=== PATIENT | male | born 1960 | race Two or more races ===

== ENCOUNTER → 2021-11-10 10:52 | Outpatient (BNVA) | payer MEDICAID, SELFPAY | PROVIDERS: PCP Internal Medicine; Referring Provider Internal Medicine; Visit Provider Physician Assistant | DX: Z13.89 Encounter for screening for other disorder (principal) ==

== ENCOUNTER 2021-12-08 11:49 | Outpatient (REF) | payer MEDICAID, SELFPAY ==
--- NOTE | ~2021-12-08 | CT_ITS ---
EXAMINATION: CT ABDOMEN AND PELVIS WITH CONTRAST CLINICAL INFORMATION: Colon COMPARISON: Previous CT of the abdomen and pelvis most recent December 2018 TECHNIQUE: Multidetector volumetric images were obtained from the superior aspect of the liver through the pubic symphysis following administration 85 mL of Omnipaque 350 intravenous contrast. Sagittal and coronal reformatted images were obtained on the technologist's workstation. Oral contrast: Yes This CT examination was performed using dose optimization techniques as appropriate, variously including the following: *Automated exposure control *Adjustment of mA and/or kV according to patient size (this includes techniques or standardized protocols for targeted exams where dose is matched to indication/reason for exam; i.e. extremities or head) *Use of iterative reconstruction technique DLP: 318 mGy-cm FINDINGS: LUNG BASES: The visualized lung bases are unremarkable. LIVER, GALLBLADDER, AND BILIARY TREE: There is heterogeneous enhancement of the liver. There are numerous high attenuation or enhancing peripheral areas in the liver, predominantly in the left lobe of the liver for example measuring 2.5 cm axial image 14, 3 cm axial image 15 and 1.1 cm axial image 16 series 3. It is uncertain whether these represent hypervascular lesions are more related to heterogeneous enhancement of the liver. The intrahepatic IVC and hepatic veins appear narrowed. 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 There is a definite new focal low-attenuation liver lesion high in the dome liver. This partially calcified This measures 3.5 x 4 cm. This is in attenuation and may be complex cystic. This appears slightly angular or triangular in shape. This is new from December 2018 exam however is seen in area of 1.2 cm hypervascular lesion and it is possible this could represent a treated lesion. This area abuts the gallbladder and it is possible this could be related to the gallbladder as well. The gallbladder appears contracted. There are gallstones. There is no intra or extrahepatic biliary duct dilatation. PANCREAS: Unremarkable. SPLEEN: There is low-attenuation seen along the periphery of the spleen. No focal splenic lesion is seen. ADRENAL GLANDS: Unremarkable. KIDNEYS AND URETERS: The kidneys are normal in size, shape, and attenuation. No hydronephrosis, hydroureter, or calculi seen. No perinephric stranding. BLADDER: Unremarkable. GASTROINTESTINAL TRACT: There is stool throughout the colon. No dilated loops of bowel to suggest obstruction are seen. Small and large bowel is otherwise unremarkable. The appendix is not seen. ABDOMINAL WALL: No significant hernia is appreciated. LYMPH NODES: Normal. No ascites. No evidence of peritoneal disease. VASCULAR: There is evidence of atherosclerotic disease. No aneurysm. PELVIC VISCERA: Unremarkable. OSSEOUS STRUCTURES: Degenerative disc disease at L5-S1. No focal bone lesion or fracture. CT/CT abdomen pelvis w con IMPRESSION: Mild cirrhotic changes of the liver. Areas of increased enhancement in the left lobe of the liver questionable for hypervascular lesions versus possibly vascular perfusion changes related to Budd-Chiari. New triangular-shaped low-attenuation area high in the dome of the liver. This is seen in the area of previous hypervascular lesion and this may represent posttreatment changes. Liver findings could be better assessed with MRI or PET CT scan. Contracted gallbladder and gallstones. New peripheral low-attenuation in the spleen questionable for capsular thickening or possibly subcapsular implants related to metastatic disease. Constipation. Fleischner guidelines were followed.
--- NOTE | ~2021-12-08 | CT_ITS ---
EXAMINATION: CT CHEST WITH CONTRAST CLINICAL INFORMATION: Cancer staging. COMPARISON: None. TECHNIQUE: Multidetector volumetric CT imaging of the chest was obtained after the administration of 85 mL of Omnipaque 350 intravenous contrast without immediate adverse reactions. Axial MIP volume rendering provided. Sagittal and coronal reformatted images were obtained. This CT examination was performed using dose optimization techniques as appropriate, variously including the following: *Automated exposure control *Adjustment of mA and/or kV according to patient size (this includes techniques or standardized protocols for targeted exams where dose is matched to indication/reason for exam; i.e. extremities or head) *Use of iterative reconstruction technique DLP: 135 mGy-cm. FINDINGS: TITLE CLERK: Well-expanded lungs. LUNGS: The lungs are well expanded and clear acute pneumonic process. There is a punctate 1 mm right upper lobe calcification image 29/4, 3 mm right middle lobe calcification axial image 33/4. No noncalcified nodules are seen. MEDIASTINUM: Heart size and the great vessels are normal caliber. There is no pericardial effusion. Central trachea and the bronchi are widely patent. No abnormal size mediastinal or hilar lymph nodes seen. The thyroid lobes are symmetrical and normal. PLEURA: There is no pleural effusion. No pleural mass or thickening. AXILLA: No lymphadenopathy. UPPER ABDOMEN: The liver is diffusely hypoattenuated areas of focal fatty sparing. There are areas of focal hypodensity in the hypoattenuated lesions measure approximately 400-500 HU and may represent calcifications. The IVC is compromised. The hepatic veins are not visualized. The portal vein is widely patent. OSSEOUS STRUCTURES: There is no lytic or sclerotic process. CT/CT chest w con IMPRESSION: Scattered calcified nodules likely granulomas. No noncalcified nodules seen. No abnormal mediastinal or axillary lymphadenopathy. Heterogeneous liver lesions with likely calcifications. Recommend MRI liver with and without contrast or CT-guided biopsy of hepatic lesions. Fleischner guidelines were followed.
[2021-12-08] MEDS: iohexoL 350 MG/ML 100 ML INFUS..BTL IV (14:45)
== END 2021-12-08 11:50 | disposition home or self-care (01) ==
LOC: HO.CT 11:49
PROVIDERS: Visit Provider Internal Medicine
DX: C22.0 Liver cell carcinoma (principal)
CPT/HCPCS: 71260; 74177; Q9967

== ENCOUNTER → 2022-01-02 10:33 | Outpatient (BNVA) | payer MEDICAID, SELFPAY | PROVIDERS: Visit Provider Internal Medicine Gastroenterology | DX: Z13.89 Encounter for screening for other disorder (principal) ==

== ENCOUNTER 2022-01-07 08:21 | Outpatient (REF) | payer MEDICAID, SELFPAY ==
[2022-01-07 09:22] LABS: MANUAL DIFF FLAG NO
[2022-01-07 10:10] LABS: Basophils Percent Auto 0.5 % (0-2); Eosinophils Absolute Auto 0.1 X10*3/uL (0.0-0.4); Eosinophils Percent Auto 1.4 % (0-4); Imm Gran Abs Auto 0.01 X10*3/uL (0.00-0.03); Imm Gran Pct Auto 0.2 % (0.0-0.4); Lymphocytes Absolute Auto 2.5 X10*3/uL (1.2-4.9); Lymphocytes Percent Auto 38.7 % (20-40); Mean Corpuscular HGB Conc 32.6 g/dl (31.0-36.0); Mean Corpuscular Hemoglobin 28.5 pg (27.0-33.0); Mean Corpuscular Volume 87.5 fL (80.0-98.0); Mean Platelet Volume 11.9 fL (9.4-12.4); Monocytes Absolute Auto 0.7 X10*3/uL (0.1-1.2); Monocytes Percent Auto 11.1 % (2-11); Neutrophils Absolute Auto 3.2 x10*3/uL (2.0-8.3); Neutrophils Percent Auto 48.1 % (45-73); Platelet Count 197 X10*3/uL (160-400); Red Blood Count 5.26 X10*6/uL (4.60-5.80); Red Cell Distribution Width 13.2 % (11.0-16.0); White Blood Count 6.6 X10*3/uL (4.8-10.8)
[2022-01-07 10:15] LABS: Prothrombin Time 11.8 SEC (9.9-13.0)
[2022-01-07 10:54] LABS: Hepatitis A Antibody IgG REACTIVE (Nonreactive); ~Hepatitis A Antibody IgG 4.28 S/CO (0.00-0.99)
[2022-01-07 10:56] LABS: HBS Num1 33.63 mIU/mL (0-7.99); HBc Num1 9.37 S/CO (0.00-0.79); HBsAGNum1 0.16 S/CO (0.00-0.99); Hepatitis B Surface Antigen Negative (Negative); ~HepC Num1 12.23 S/CO (0.00-0.79); ~Hepatitis B Surface Antibody REACTIVE (Nonreactive); ~Hepatitis C Antibody Reactive (Nonreactive)
[2022-01-07 10:59] LABS: Alanine Aminotransferase 107 U/L (0-40); Albumin Level 3.9 g/dL (3.5-5.0); Alkaline Phosphatase 219 U/L (39-117); Anion Gap 13 (12-20); Aspartate Amino Transferase 122 U/L (5-37); Bilirubin Total 0.7 mg/dL (0.0-1.0); Blood Urea Nitrogen 17 mg/dL (9-16); Calcium 9.7 mg/dL (8.4-10.2); Carbon Dioxide 26 mmol/L (22-29); Chloride 104 mmol/L (96-108); Estimated Glomerular Filt Rate > 60; Glucose Random 141 mg/dL (60-115); Potassium 4.5 mmol/L (3.3-5.1); Sodium 138 mmol/L (135-145); Total Protein 7.3 g/dL (6.5-8.0)
[2022-01-07 12:42] LABS: HBc Num2 9.29 S/CO; HBc Num3 9.23 S/CO; Hepatitis B Core Antibody Reactive (Nonreactive)
[2022-01-10 12:56] LABS: HCV RNA PCR Qn 6.91 Log IU/mL (NOT DETECTED)
[2022-01-13 18:46] LABS: FIB-ALT 84 U/L (9-46); FIB-Alpha-2-Macroglobulin 557 mg/dL (106-279); FIB-Apolipoprotein A1 160 mg/dL (94-176); FIB-GGT 531 U/L (3-70); FIB-Haptoglobin 44 mg/dL (43-212); FIB-Total Bilirubin 0.8 mg/dL (0.2-1.2); Liver Fibrosis Score 0.96; Liver Fibrosis Stage F4; Nec Inflam Act Grade A3; Nec Inflam Act Score 0.73
[2022-01-14 15:27] LABS: HCV Genotype LiPA 1b
== END 2022-01-07 08:22 | disposition home or self-care (01) ==
LOC: HO.LAB 08:21
PROVIDERS: PCP Internal Medicine; Visit Provider Internal Medicine Gastroenterology
DX: B19.20 Unspecified viral hepatitis C without hepatic coma (principal); C22.0 Liver cell carcinoma; K75.81 Nonalcoholic steatohepatitis (NASH)
CPT/HCPCS: 36415; 80053; 81596; 85025; 85610; 86704; 86706; 86708; 86803; 87340; 87522; 87902

== ENCOUNTER 2022-07-10 14:03 | Emergency (ER) | payer MEDICAID, SELFPAY ==
--- NOTE | ~2022-07-10 | CT_ITS ---
EXAMINATION: CT ABDOMEN AND PELVIS WITHOUT CONTRAST CLINICAL INFORMATION: Abdominal pain. History of liver cancer COMPARISON: CT abdomen and pelvis 12/08/2021 TECHNIQUE: Multidetector volumetric imaging was performed from the superior aspect of the liver through the pubic symphysis. Sagittal and coronal reformatted images were obtained on the technologist's workstation. This CT examination was performed using dose optimization techniques as appropriate, variously including the following: *Automated exposure control *Adjustment of mA and/or kV according to patient size (this includes techniques or standardized protocols for targeted exams where dose is matched to indication/reason for exam; i.e. extremities or head) *Use of iterative reconstruction technique DLP: 430 mGy-cm FINDINGS: LUNG BASES: The visualized lung bases are unremarkable. LIVER, GALLBLADDER, AND BILIARY TREE: Cirrhotic liver morphology with nodular surface contour redemonstrated. There is a wedge-shaped. Geographic hypoattenuation in the anterior upper right liver with coarse calcifications, grossly similar to prior. Assessment is limited due to lack of intravenous contrast. There are couple somewhat ill-defined areas of hypoattenuation in the lateral segment left liver lobe, largest 2.9 cm on series 3 image 18 a small subcentimeter hypodense focus in the posterior segment right liver lobe on series 3 image 22. Correlate on the comparison study. No biliary ductal dilation. Gallbladder is contains high-density material/sludge and stones. No surrounding inflammatory change. PANCREAS: Unremarkable. SPLEEN: Normal size. Somewhat lobulated capsular contour. No discrete lesion. ADRENAL GLANDS: Unremarkable. KIDNEYS AND URETERS: The kidneys are normal in size, shape, and attenuation. No hydronephrosis, hydroureter, or calculi seen. No perinephric stranding. BLADDER: Unremarkable. GASTROINTESTINAL TRACT: Mild sigmoid diverticulosis. No evidence of acute diverticulitis. No dilated bowel loops. No bowel wall thickening. Normal appendix. No ascites or free air. ABDOMINAL WALL: No significant hernia is appreciated. LYMPH NODES: No lymphadenopathy. There is hazy attenuation/pedro appearance of the mesentery, new since prior. VASCULAR: Limited assessment due to lack of intravenous contrast. Normal caliber abdominal aorta. Moderate atherosclerotic vascular calcifications. PELVIC VISCERA: Unremarkable. OSSEOUS STRUCTURES: There are small osteolytic lesions suspicious for metastasis including in the right ischium, supra-acetabular right iliac bone, left upper sacrum, L1, L2, L4, L5 vertebral bodies and possible involving the posterior left ninth rib the top margin of the [id number] as examples. No acute fracture. CT/CT abdomen pelvis wo IV con IMPRESSION: 1. No acute intra-abdominal process identified. 2. Cirrhosis with a few ill-defined hypodense lesions in the lateral segment left liver lobe and posterior segment right liver lobe, not well assessed due to lack of intravenous contrast, but appear new since prior possibly multifocal HCC or metastasis. 3. Multiple small osteolytic osseous lesions, as above, highly suspicious for osseous metastasis. 4. Hazy/pedro attenuation of the mesentery, new since prior, nonspecific in etiology. Cannot exclude portal vein thrombosis due to lack of intravenous contrast as possible etiology. 5. Cholelithiasis. 6. Additional finding, as described.
[2022-07-10 14:45] VITALS: BP 169/83; PULSE 88; RESP 18; TEMP 36.6; O2SAT 98; BMI 21.1
--- NOTE | 2022-07-10 14:45 | ED_ITS ---
HPI - General Adult General Chief complaint: Abdominal Pain Stated complaint: Stomach Pain X 2 Days Time Seen by Provider: 07/10/22 17:25 Source: patient Mode of arrival: ambulatory Limitations: no limitations Related Data Home Medications Medication Instructions Recorded Confirmed glipizide 10 mg tablet 10 mg PO BID 11/10/21 12/18/21 lisinopril 20 2 tab PO DAILY 11/10/21 12/18/21 mg-hydrochlorothiazide 25 mg tablet Previous Rx's Medication Instructions Recorded glecaprevir 100 mg-pibrentasvir 40 3 tab PO DAILY 16 weeks #336 tabs 01/21/22 mg tablet (Mavyret) entecavir 1 mg tablet 1 mg PO DAILY 30 days #30 tabs 01/23/22 Allergies Allergy/AdvReac Type Severity Reaction Status Date / Time No Known Allergies Allergy Verified 12/18/21 14:12 [facility] Past Medical History Medical History HCC (hepatocellular carcinoma) Surgical History History of colonoscopy Family History Family History Daughter Unknown family medical history Social History Social History (Updated 11/10/21 @ 11:43 by Vdiya Do PA-C) Household Members Other:: lives alone Alcohol intake: former Patient Tobacco Use Status: Former Tobacco user Advance Directives: No Advance Directives Information Provided: No Current occupational status: disabled Physical Exam ED Vital Signs: Vital Signs - 24 hr 07/10/22 14:45 07/10/22 18:49 Temperature 97.9 F Pulse Rate 88 93 Respiratory Rate 18 Blood Pressure 169/83 H 156/76 H Pulse Oximetry 98 100 Oxygen Delivery Method Room Air Room Air BMI result Body Mass Index 21.1 Course Course Course Narrative: RME performed by Dinah Youngblood PA-C. Patient is a 61 year old male with a history of hepatocellular carincoma presenting to the emergency department with abdominal pain. Patient states that the pain has been present over the last 2 days and he has not had a BM in that time. CBC, CMP, UA, and CT abd/pelvis ordered. Patient placed back in the waiting room pending results and bed availability. Patient seen and discharged by Dr. Del Castillo who created and completed a separate note. Medications Administered Discontinued Medications Generic Name Dose Route Start Last Admin Trade Name Freq PRN Reason Stop Dose Admin Hydromorphone HCl 1 mg 07/10/22 18:43 07/10/22 19:15 Hydromorphone Hcl 1 Mg/Ml Syringe IM 07/10/22 18:44 1 mg ONCE ONE Administration Protocol Medical Decision Making Lab Data Result diagrams: 07/10/22 16:42 07/10/22 16:42 Labs: Lab Results 07/10/22 07/10/22 07/10/22 Range/Units 14:57 16:42 16:42 WBC 16.6 H (4.8-10.8) X10*3/uL RBC 4.08 L D (4.60-5.80) X10*6/uL Hgb 11.8 L D (14.0-18.0) g/dl Hct 35.4 L D (42.0-52.0) % MCV 86.8 (80.0-98.0) fL MCH 28.9 (27.0-33.0) pg MCHC 33.3 (31.0-36.0) g/dl RDW 13.6 (11.0-16.0) % Plt Count 206 (160-400) X10*3/uL MPV 11.4 (9.4-12.4) fL Immature Gran % (Auto) 0.5 H (0.0-0.4) % Neut % (Auto) 79.9 H (45-73) % Lymph % (Auto) 7.9 L (20-40) % [place] % (Auto) 11.4 H (2-11) % Eos % (Auto) 0.1 (0-4) % Baso % (Auto) 0.2 (0-2) % Lymph # (Auto) 1.3 (1.2-4.9) X10*3/uL [place] # (Auto) 1.9 H (0.1-1.2) X10*3/uL Eos # (Auto) 0.0 (0.0-0.4) X10*3/uL Baso # (Auto) 0.0 (0.0-0.2) X10*3/uL Abs Immat Gran (auto) 0.08 H (0.00-0.03) X10*3/uL Absolute Neuts (auto) 13.3 H (2.0-8.3) x10*3/uL Absolute Nucleated RBC 0.000 (0.0-0.012) X10*3/uL Nucleated RBC % (auto) 0.0 (0.0-0.2) /100WBC Sodium 130 L (135-145) mmol/L Potassium 4.9 (3.3-5.1) mmol/L Chloride 96 (96-108) mmol/L Carbon Dioxide 27 (22-29) mmol/L Anion Gap 12 (12-20) BUN 22 H (9-16) mg/dL Creatinine 0.78 (0.5-1.4) mg/dL Estim Creat Clear Calc 83.9 Estimated GFR > 60 Random Glucose 166 H (60-115) mg/dL Calcium 9.1 D (8.4-10.2) mg/dL Magnesium 2.0 (1.6-2.6) mg/dL Total Bilirubin 1.4 H (0.0-1.0) mg/dL AST 588 H (5-37) U/L ALT 360 H (0-40) U/L Alkaline Phosphatase 317 H (39-117) U/L Total Protein 6.7 (6.5-8.0) g/dL Albumin 3.6 (3.5-5.0) g/dL Lipase 34 (8-78) U/L Influenza Type A (PCR) NEGATIVE (Negative) Influenza Type B (PCR) NEGATIVE (Negative) RSV RNA Qual (PCR) NEGATIVE (Negative) SARS-CoV-2 RNA (RT-PCR) NEGATIVE (Negative) Discharge Plan Discharge Clinical Impression: Cirrhosis, HCC (hepatocellular carcinoma) Patient Disposition: Home, Self-Care Prescriptions: No Action Mavyret 100-40 mg tablet 3 tab PO DAILY 112 Days Qty: 336 0RF Rx Instructions: must administer with a meal/food entecavir 1 mg tablet 1 mg PO DAILY 30 Days Qty: 30 6RF lisinopril-hydrochlorothiazide 20-25 mg tablet 2 tab PO DAILY glipizide 10 mg tablet 10 mg PO BID Referrals: Verónica Kingsley MD [Physician] - 07/13/22 Willem Chirinos MD [Physician] - 07/13/22
[2022-07-10 15:42] LABS: Influenza A PCR NEGATIVE (Negative); Influenza B PCR NEGATIVE (Negative); Resp Syncy Virus RNA Qual PCR NEGATIVE (Negative); SARS COV2 PCR INHOUSE NEGATIVE (Negative)
[2022-07-10 16:49] LABS: Basophils Percent Auto 0.2 % (0-2); Eosinophils Percent Auto 0.1 % (0-4); Hematocrit 35.4 % (42.0-52.0); Hemoglobin 11.8 g/dl (14.0-18.0); Imm Gran Abs Auto 0.08 X10*3/uL (0.00-0.03); Imm Gran Pct Auto 0.5 % (0.0-0.4); Lymphocytes Absolute Auto 1.3 X10*3/uL (1.2-4.9); Lymphocytes Percent Auto 7.9 % (20-40); MANUAL DIFF FLAG NO; Mean Corpuscular HGB Conc 33.3 g/dl (31.0-36.0); Mean Corpuscular Hemoglobin 28.9 pg (27.0-33.0); Mean Corpuscular Volume 86.8 fL (80.0-98.0); Mean Platelet Volume 11.4 fL (9.4-12.4); Monocytes Absolute Auto 1.9 X10*3/uL (0.1-1.2); Monocytes Percent Auto 11.4 % (2-11); Neutrophils Absolute Auto 13.3 x10*3/uL (2.0-8.3); Neutrophils Percent Auto 79.9 % (45-73); Platelet Count 206 X10*3/uL (160-400); Red Blood Count 4.08 X10*6/uL (4.60-5.80); Red Cell Distribution Width 13.6 % (11.0-16.0); SCAN SMEAR FLAG 1; White Blood Count 16.6 X10*3/uL (4.8-10.8)
[2022-07-10 17:11] LABS: Alanine Aminotransferase 360 U/L (0-40); Albumin Level 3.6 g/dL (3.5-5.0); Alkaline Phosphatase 317 U/L (39-117); Anion Gap 12 (12-20); Aspartate Amino Transferase 588 U/L (5-37); Bilirubin Total 1.4 mg/dL (0.0-1.0); Blood Urea Nitrogen 22 mg/dL (9-16); Calcium 9.1 mg/dL (8.4-10.2); Carbon Dioxide 27 mmol/L (22-29); Chloride 96 mmol/L (96-108); Creatinine Clr Calc Pharmacy 83.9; Estimated Glomerular Filt Rate > 60; Glucose Random 166 mg/dL (60-115); Potassium 4.9 mmol/L (3.3-5.1); Sodium 130 mmol/L (135-145); Total Protein 6.7 g/dL (6.5-8.0)
[2022-07-10 18:12] LABS: Lipase 34 U/L (8-78)
--- NOTE | 2022-07-10 18:38 | ED_ITS ---
HPI - Abdominal Pain General Chief Complaint: Abdominal Pain Stated Complaint: Stomach Pain X 2 Days Time Seen by Provider: 07/10/22 17:25 Source: patient Mode of arrival: ambulatory Limitations: no limitations History of Present Illness HPI narrative: Patient is a 61-year-old male with a history of hepatitis C history of hepatocellular cancer with Mets patient evaluated in the past for abdominal pain. Did not want chemo for hepatocellular cancer. Been lost to follow-up. Presented back to the emergency department for having epigastric pain. Patient claims this pain is fairly consistent it has been ongoing getting worse in the last 3 days. There is no vomiting. No diarrhea. Patient claims last bowel m ovement about 2 days ago. Normal consistency. Patient denies any chest pain or shortness of breath. No fever no chills. Denies drinking alcohol. He is from home Related Data Home Medications Medication Instructions Recorded Confirmed glipizide 10 mg tablet 10 mg PO BID 11/10/21 12/18/21 lisinopril 20 2 tab PO DAILY 11/10/21 12/18/21 mg-hydrochlorothiazide 25 mg tablet Previous Rx's Medication Instructions Recorded glecaprevir 100 mg-pibrentasvir 40 3 tab PO DAILY 16 weeks #336 tabs 01/21/22 mg tablet (Mavyret) entecavir 1 mg tablet 1 mg PO DAILY 30 days #30 tabs 01/23/22 Allergies Allergy/AdvReac Type Severity Reaction Status Date / Time No Known Allergies Allergy Verified 12/18/21 14:12 Review of Systems Review of Systems No fever no chills no nausea no vomiting positive abdominal pain no chest pain or shortness of breath. No constipation Yes all other systems are reviewed and are negative [facility] Past Medical History Attestation statement: The following information was validated with the patient. Medical History HCC (hepatocellular carcinoma) Surgical History History of colonoscopy Family History Family History Daughter Unknown family medical history Social History Social History (Updated 11/10/21 @ 11:43 by Vidya Do PA-C) Household Members Other:: lives alone Alcohol intake: former Patient Tobacco Use Status: Former Tobacco user Advance Directives: No Advance Directives Information Provided: No Current occupational status: disabled Physical Exam ED Vital Signs: Vital Signs - 24 hr 07/10/22 14:45 07/10/22 18:49 Temperature 97.9 F Pulse Rate 88 93 Respiratory Rate 18 Blood Pressure 169/83 H 156/76 H Pulse Oximetry 98 100 Oxygen Delivery Method Room Air Room Air BMI result Body Mass Index 21.1 Appearance: Alert. Oriented X3. No acute distress. Eyes: Pupils equal, round and reactive to light. ENT: Pharynx normal. Neck: Normal inspection. Neck supple. No lymph nodes noted. No crepitus CVS: Normal heart rate and rhythm. Pulses normal. Normal S1 and S2 Respiratory: No respiratory distress. Breath sounds normal. No Wheezing. No rales Abdomen: Soft and nontender. No rigidity. No distention. good BS x4 Skin: Skin warm and dry. Normal skin color. Normal skin turgor. Extremities: No lower extremity edema. Neurovascular intact to all extremities. No Lacerations. No Rash Neuro: Oriented X 3. No motor deficit. No sensory deficit. Moving all extermities. No slurred speech Medications Administered Discontinued Medications Generic Name Dose Route Start Last Admin Trade Name Freq PRN Reason Stop Dose Admin Hydromorphone HCl 1 mg 07/10/22 18:43 07/10/22 19:15 Hydromorphone Hcl 1 Mg/Ml Syringe IM 07/10/22 18:44 1 mg ONCE ONE Administration Protocol MDM - Abdominal Pain MDM Narrative Medical decision making narrative: Patient's LFTs are significantly elevated than previous. Most likely related to hepatocellular cancer. The finding was discussed with Dr. Chirinos from GI. Agree the findings are consistent with worsening cancer lost to follow-up. Will also contact Oncology. Agree there is nothing specifically to do given the elevated LFTs. There is no obstruction. No biliary dilatation. Patient's given pain medication in the emergency department. Will discharge patient home with close follow-up oncology and GI. Patient explained the need for close follow-up. States understanding that he has cancer and does not want to be treated. Patient's name given to Dr. Paulino on-call for Dr. Kingsley. Will attempt to have patient follow up again. Patient's case also discussed with Dr. Chirinos both services a happy to see patient. Re-emphasized the patient the need for follow- up. Patient states understanding. There is no overt obstruction is no overt abscess there is no acute finding at this time. Patient is to be discharged home. Differential Diagnosis Differential diagnosis: Likely abdominal pain Differential diagnosis narrative:: Liver cancer Medical Records Attestation: I reviewed the patient's medical records. Lab Data Attestation: I reviewed the patient's lab results. Result diagrams: 07/10/22 16:42 07/10/22 16:42 Labs: Lab Results 07/10/22 07/10/22 07/10/22 Range/Units 14:57 16:42 16:42 WBC 16.6 H (4.8-10.8) X10*3/uL RBC 4.08 L D (4.60-5.80) X10*6/uL Hgb 11.8 L D (14.0-18.0) g/dl Hct 35.4 L D (42.0-52.0) % MCV 86.8 (80.0-98.0) fL MCH 28.9 (27.0-33.0) pg MCHC 33.3 (31.0-36.0) g/dl RDW 13.6 (11.0-16.0) % Plt Count 206 (160-400) X10*3/uL MPV 11.4 (9.4-12.4) fL Immature Gran % (Auto) 0.5 H (0.0-0.4) % Neut % (Auto) 79.9 H (45-73) % Lymph % (Auto) 7.9 L (20-40) % [place] % (Auto) 11.4 H (2-11) % Eos % (Auto) 0.1 (0-4) % Baso % (Auto) 0.2 (0-2) % Lymph # (Auto) 1.3 (1.2-4.9) X10*3/uL [place] # (Auto) 1.9 H (0.1-1.2) X10*3/uL Eos # (Auto) 0.0 (0.0-0.4) X10*3/uL Baso # (Auto) 0.0 (0.0-0.2) X10*3/uL Abs Immat Gran (auto) 0.08 H (0.00-0.03) X10*3/uL Absolute Neuts (auto) 13.3 H (2.0-8.3) x10*3/uL Absolute Nucleated RBC 0.000 (0.0-0.012) X10*3/uL Nucleated RBC % (auto) 0.0 (0.0-0.2) /100WBC Sodium 130 L (135-145) mmol/L Potassium 4.9 (3.3-5.1) mmol/L Chloride 96 (96-108) mmol/L Carbon Dioxide 27 (22-29) mmol/L Anion Gap 12 (12-20) BUN 22 H (9-16) mg/dL Creatinine 0.78 (0.5-1.4) mg/dL Estim Creat Clear Calc 83.9 Estimated GFR > 60 Random Glucose 166 H (60-115) mg/dL Calcium 9.1 D (8.4-10.2) mg/dL Magnesium 2.0 (1.6-2.6) mg/dL Total Bilirubin 1.4 H (0.0-1.0) mg/dL AST 588 H (5-37) U/L ALT 360 H (0-40) U/L Alkaline Phosphatase 317 H (39-117) U/L Total Protein 6.7 (6.5-8.0) g/dL Albumin 3.6 (3.5-5.0) g/dL Lipase 34 (8-78) U/L Influenza Type A (PCR) NEGATIVE (Negative) Influenza Type B (PCR) NEGATIVE (Negative) RSV RNA Qual (PCR) NEGATIVE (Negative) SARS-CoV-2 RNA (RT-PCR) NEGATIVE (Negative) Discharge Plan Discharge Clinical Impression: Cirrhosis, HCC (hepatocellular carcinoma) Patient Disposition: Home, Self-Care Instructions: Liver Cancer (DC), Cirrhosis (ED) Prescriptions: No Action Mavyret 100-40 mg tablet 3 tab PO DAILY 112 Days Qty: 336 0RF Rx Instructions: must administer with a meal/food entecavir 1 mg tablet 1 mg PO DAILY 30 Days Qty: 30 6RF lisinopril-hydrochlorothiazide 20-25 mg tablet 2 tab PO DAILY glipizide 10 mg tablet 10 mg PO BID Referrals: Verónica Kingsley MD [Physician] - 07/13/22 Willem Chirinos MD [Physician] - 07/13/22
[2022-07-10 18:49] VITALS: BP 156/76; PULSE 93; O2SAT 100
[2022-07-10] MEDS: HYDROmorphone HCl 1 MG/ML SYRINGE IM (19:15)
== END 2022-07-10 19:38 | disposition home or self-care (01) ==
PROVIDERS: Physician Assistant; Physician Assistant Medical; Emergency Provider Emergency Medicine Emergency Medical Services; PCP Internal Medicine
DX: K74.60 Unspecified cirrhosis of liver (principal); R10.13 Epigastric pain; C22.0 Liver cell carcinoma; Z20.822 Contact with and (suspected) exposure to COVID-19; Z79.899 Other long term (current) drug therapy
CPT/HCPCS: 0241U; 74176; 80053; 83690; 83735; 85025; 99283; J1170

== ENCOUNTER 2022-08-31 11:43 | Outpatient (REF) | payer MEDICAID, SELFPAY ==
--- NOTE | ~2022-08-31 | CT_ITS ---
EXAMINATION: CT CHEST, ABDOMEN AND PELVIS WITH IV CONTRAST CLINICAL INFORMATION: HCC COMPARISON: CT abdomen and pelvis 07/10/2022. TECHNIQUE: 5 mm thin axial and reformatted 3 mm thin sagittal and coronal images of chest, abdomen and pelvis were obtained following IV 85 mL Omnipaque 350. This CT examination was performed using dose optimization technique as appropriate, variously including the following: Automated exposure control Adjustment of MA and/or KV according to patient size(this includes techniques or standardized protocols for targeted exams where dose is matched to indication/reason for exam; extremities or head. Use of iterative reconstruction techniques. DLP: 219 mGy-cm. FINDINGS: CHEST: Lungs: Lungs are well-expanded and clear of acute pneumonic process. There is a 2 mm nodule left upper lobe, axial image 141/7; calcified nodule right upper lobe, axial image 161/7; 4 mm nodule right middle lobe, axial image 33/4; punctate subcentimeter nodules in the right middle lobe and lingula. Mediastinum: The thyroid lobes are symmetric and normal. The central trachea and bronchi are widely patent. The heart size and the great vessels are normal caliber. There are no coronary artery calcifications present. There is no pericardial effusion seen. No abnormal size mediastinal or hilar lymph nodes. Pleura: There is no pleural thickening, effusion or calcification. Axilla: There is no abnormal axillary lymph nodes. The chest wall is unremarkable. Osseous Structures: No aggressive lytic or sclerotic process seen. ABDOMEN AND PELVIS: Liver, Ducts and Gallbladder: The liver is heterogeneous, lobulated contour with diffuse abnormal-appearing medial right and almost entire left hepatic lobe with mild atrophy of right hepatic lobe. There is some sparing of the lateral segment left hepatic lobe. A few scattered calcifications are seen in the right hepatic lobe. No intrahepatic ductal dilatation seen. Findings are most suggestive of HCC. The size of the lesion appears similar to previous study, however, limited due to lack of IV contrast on the previous exam. Multiple radiopaque gallstones and high-density sludge balls. Spleen: The spleen is slightly lobulated but normal size. There is perisplenic soft tissue density. Pancreas: The pancreas is homogeneous in echotexture and appears unremarkable. Adrenal Glands: Unremarkable. Lymphovascular Structures: The abdominal aorta is normal caliber. No abnormal size retroperitoneal lymph nodes seen. GI Tract: There is a large amount of stool in the colon without significant distention. The small-bowel loops are opacified with oral contrast and are normal caliber. No free air, free fluid or inflammatory process. Previously seen mesenteric haziness appears slightly improved from the previous study. Abdominal Wall: Unremarkable. Pelvis: The bladder is undistended and unremarkable. No free fluid seen. No abnormal pelvic or inguinal lymph nodes. The prostate gland is normal size. Osseous Structures: There are multiple lytic lesions seen involving L4, L3, L2 and L1 vertebra. CT/CT abdomen pelvis w IV con IMPRESSION: Stable bilateral small appearing nodules. No abnormal mediastinal adenopathy. Cirrhosis with space occupying lesion medial left and lateral right hepatic lobe, the size of the lesion appears somewhat stable but unchanged. Findings are suggestive of HCC and likely multifocal with coalescent lesions appearing as one big lesion. No abnormal mediastinal or retroperitoneal adenopathy seen. Multiple osteolytic lesions involving the spine are stable as well. Mesenteric haziness is improved. Cholelithiasis and high-density sludge balls are stable. Severe constipation.
[2022-08-31] MEDS: Barium Sulfate Oral (Mocha) 450 ML ORAL.SUSP 900 ML PO (14:35)
[2022-08-31] MEDS: iohexoL 350 MG/ML 100 ML INFUS..BTL IV (14:37)
== END 2022-08-31 11:44 | disposition home or self-care (01) ==
LOC: HO.CT 11:43
PROVIDERS: PCP Internal Medicine; Visit Provider Internal Medicine
DX: C22.0 Liver cell carcinoma (principal)
CPT/HCPCS: 71260; 74177; Q9967

== ENCOUNTER 2022-09-08 10:41 | Outpatient (REF) | payer MEDICAID, SELFPAY ==
--- NOTE | ~2022-09-08 | PE_ITS ---
EXAMINATION: Fluorine-18 FDG PET/CT Scan CLINICAL INDICATION: Initial treatment management. Hepatocellular carcinoma, initial staging. PROCEDURE: 61 minutes following the intravenous administration of 18.2 mCi of fluorine 18 FDG, images from the base of the skull to the mid thighs were obtained using a combined PET/CT scanner with CT scan based attenuation correction. No oral contrast was administered. No intravenous contrast was administered. Transverse, coronal, sagittal, and volume reconstruction projections were obtained. The patient's blood glucose as determined by a finger stick, was 69 mg/dl immediately prior to injection. Total CT exam dose-length product 217.06 mGy-cm * These CT images were obtained using dose optimization techniques as appropriate, variously including the following: Automated exposure control * Adjustment of mA and/or kV according to patient size (this includes techniques or standardized protocols for targeted exams where dose is matched to indication/reason for exam; i.e. extremities or head) * Use of iterative reconstruction technique COMPARISON: No previous PET/CT scan is available for comparison. CT scan of the chest, abdomen, and pelvis dated 08/31/2022 is available for comparison.. FINDINGS: (Slice numbers described in this report are numbered superiorly to inferiorly with slice #1 in the head) NECK AND VISUALIZED HEAD: No foci of abnormal FDG activity are noted. The distribution of FDG activity is physiological. There is no cervical lymphadenopathy. THORAX: There are no foci of abnormal FDG activity in the chest. Several small subcentimeter nodules visualized on the diagnostic 08/31/2022 CT scan of the chest are again visualized: A 0.2 cm left upper lobe nodule, slice 200/698; a right upper lobe 0.2 cm nodule, slice 212/698; and a 0.5 cm densely calcified right middle lobe nodule, slice 263/698. These are all too small to be characterized on the FDG PET images, but appear unchanged from 08/31/2022. No additional pulmonary nodules are visualized. There is no pleural or pericardial fluid, or pneumothorax. There is no mediastinal, supraclavicular, or axillary lymphadenopathy. ABDOMEN AND PELVIS: A large mildly FDG avid mass replaces most of the volume of the left lobe of the liver, showing SUVmax 3.7, slice 132/267. No additional suspicious foci of increased FDG activity are present in the liver. There is a hypodense focus in the dome of the right lobe (liver Couinaud segment 8) which was better delineated on the IV contrast enhanced 08/31/[address] scan, and this appears to be FDG photopenic. It contains several dense calcifications and does not appear significantly changed from the 08/31/2022 study. No additional abnormalities are present in the liver. Multiple densely calcified gallbladder calculi are present, but the gallbladder is otherwise unremarkable. There is no abnormal FDG activity in the gallbladder. The spleen is unremarkable. The kidneys, adrenal glands and pancreas are unremarkable. There is mild FDG activity present throughout the gastrointestinal tract without a suspicious focal component. There is diverticulosis without evidence of diverticulitis. The hollow viscera are otherwise unremarkable. The pelvic organs are unremarkable. There is no retroperitoneal, mesenteric, pelvic or inguinal lymphadenopathy. MUSCULOSKELETAL: Multiple FDG avid lytic osseous lesions are present. These include a lytic lesion in the right supra-acetabular anterior iliac bone showing SUVmax 2.7, slice 208/267 corresponding to a lytic lesion measuring 1.3 x 0.6 cm in largest transverse dimensions, an ill-defined lytic lesion in the region of the right ischial tuberosity showing SUVmax 2.9, slice 238/267, and a lytic 1.5 x 1.0 cm lesion in the T10 vertebral body that shows SUVmax 3.0, slice 121/267. FDG avid lesions are present at several sites in the lumbar spine, most prominently in L1 and L4z. There is a lytic lesion, probably containing a pathological fracture in the posterior medial aspect of the left ninth rib showing SUVmax 2.5, slice 109/267 and an additional focus of increased FDG activity is present in the lateral aspect of the left seventh rib. VASCULAR: Diffuse vascular calcifications including coronary are noted. PET/PET CT fusion skull to thigh IMPRESSION: 1. An FDG avid mass replacing most of the volume of the left lobe of the liver is consistent with known primary hepatocellular carcinoma. 2. Multiple FDG avid lytic bone metastases are present as described above. 3. Subcentimeter pulmonary nodules are present, unchanged from the 08/31/2022 CT scan and too small to be characterized on the FDG PET images. Continued monitoring with diagnostic CT imaging is recommended. 4. No additional abnormalities suspicious for other metastatic or malignant lesions are noted. 5. Cholelithiasis. 6. Vascular calcifications including coronary.
== END 2022-09-08 10:42 | disposition home or self-care (01) ==
LOC: HO.PET 10:41
PROVIDERS: Visit Provider Internal Medicine
DX: Z13.89 Encounter for screening for other disorder (principal)

== ENCOUNTER 2022-10-22 10:53 | Outpatient (REF) | payer MEDICAID, SELFPAY ==
[2022-10-22 11:14] LABS: MANUAL DIFF FLAG NO
[2022-10-22 12:14] LABS: Basophils Percent Auto 0.6 % (0-2); Eosinophils Percent Auto 0.8 % (0-4); Hematocrit 38.6 % (42.0-52.0); Hemoglobin 12.6 g/dl (14.0-18.0); Imm Gran Abs Auto 0.02 X10*3/uL (0.00-0.03); Imm Gran Pct Auto 0.4 % (0.0-0.4); Lymphocytes Absolute Auto 1.1 X10*3/uL (1.2-4.9); Lymphocytes Percent Auto 21.5 % (20-40); Mean Corpuscular HGB Conc 32.6 g/dl (31.0-36.0); Mean Corpuscular Hemoglobin 26.1 pg (27.0-33.0); Mean Corpuscular Volume 79.9 fL (80.0-98.0); Monocytes Absolute Auto 0.5 X10*3/uL (0.1-1.2); Monocytes Percent Auto 9.3 % (2-11); Neutrophils Absolute Auto 3.4 x10*3/uL (2.0-8.3); Neutrophils Percent Auto 67.4 % (45-73); Platelet Count 251 X10*3/uL (160-400); Red Blood Count 4.83 X10*6/uL (4.60-5.80); Red Cell Distribution Width 16.5 % (11.0-16.0)
[2022-10-22 12:36] LABS: Appearance Urine Clear; Color Urine Dark Yellow; Glucose Urine UA Negative (Negative); Leukocyte Esterase Urine Negative (Negative); Nitrite Urine Negative (Negative); Urine Blood Negative (Negative); Urine Ketones Trace mg/dL (Negative); Urine Protein Negative (Neg-Trace)
[2022-10-22 12:52] LABS: Alanine Aminotransferase 176 U/L (0-40); Albumin Level 3.2 g/dL (3.5-5.0); Alkaline Phosphatase 447 U/L (39-117); Anion Gap 12 (12-20); Aspartate Amino Transferase 231 U/L (5-37); Bilirubin Total 0.9 mg/dL (0.0-1.0); Blood Urea Nitrogen 11 mg/dL (9-16); Calcium 8.4 mg/dL (8.4-10.2); Carbon Dioxide 23 mmol/L (22-29); Chloride 101 mmol/L (96-108); Estimated Glomerular Filt Rate > 60; Glucose Random 233 mg/dL (60-115); Potassium 4.2 mmol/L (3.3-5.1); Sodium 132 mmol/L (135-145); Total Protein 6.3 g/dL (6.5-8.0)
== END 2022-10-22 10:54 | disposition home or self-care (01) ==
LOC: HO.LAB 10:53
PROVIDERS: PCP Internal Medicine; Visit Provider Internal Medicine
DX: C79.51 Secondary malignant neoplasm of bone (principal); C22.0 Liver cell carcinoma
CPT/HCPCS: 36415; 80053; 81003; 85025

== ENCOUNTER 2022-10-29 06:50 | Day surgery (SDC) | payer MEDICAID, SELFPAY ==
--- NOTE | 2022-10-28 09:31 | P.CONAN_ITS ---
Documented by User: Ting Basurto NP 10/28/22 09:35 HPI - Anesthesia Eval Consult details Narrative: 61yo M for Upper Endoscopy History of liver cirrhosis, alcohol abuse, treated hepatitis-C genotype 1b, status post RF ablation of 1.5 cm right hepatic lobe biopsy-proven hepatoma. Recent imaging shows bone mets PMFSH Active Problems Active Problems: All Active Problems (Updated 10/23/22 @ 15:00 by Richa Monae RN) Cirrhosis (Acute) Poor historian (Acute) HCV (hepatitis C virus) (Acute) Bone metastases (Acute) HCC (hepatocellular carcinoma) (Chronic) Past Medical History Medical History (Updated 10/23/22 @ 15:00 by Richa Monae RN) Cataract Cirrhosis of liver Diabetes HCC (hepatocellular carcinoma) Hepatitis C [place] (hard of hearing) Family History Family History Daughter Unknown family medical history Surgical History Surgical History (Updated 10/23/22 @ 11:07 by Verónica Kingsley MD) History of colonoscopy History of liver biopsy Social History Social History Household Members: None Household Members Other:: lives alone Housing: Apartment Alcohol intake: former Patient Tobacco Use Status: Former Tobacco user Use of substances other than those prescribed or required for medical reasons: No Are you DNR?: No Advance Directives: No Advance Directives Information Provided: Yes Recently lost weight without trying: Yes How much weight loss: 34pounds or more Poor oral hygiene: No Current occupational status: disabled Meds Allergies Allergy/AdvReac Type Severity Reaction Status Date / Time acetaminophen AdvReac Unknown Unknown Verified 10/23/22 12:41 Home Medications Medication Instructions Recorded Confirmed Last Taken Type glipizide 10 mg tablet 10 mg PO BID 11/10/21 09/15/22 Unknown History lisinopril 20 2 tab PO DAILY 11/10/21 09/15/22 Unknown History mg-hydrochlorothiazide 25 mg tablet Exam Exam Date and Time: October 28, 2022930 Pertinent Lab Results Pertinent Lab Results: Laboratory Tests 08/25/22 10/22/22 10/22/22 15:03 11:13 11:13 WBC 5.0 Hgb 12.6 L Hct 38.6 L Plt Count 251 D PT 11.6 INR 1.0 Sodium 132 L Potassium 4.2 Chloride 101 Carbon Dioxide 23 BUN 11 Creatinine 0.73 Calcium 8.4 D Total Bilirubin 0.9 AST 231 H ALT 176 H Alkaline Phosphatase 447 H Total Protein 6.3 L Albumin 3.2 L Narrative Narrative: PET CT fusion skull to thigh 08/2022 IMPRESSION: 1.? An FDG avid mass replacing most of the volume of the left lobe of the liver is consistent with known primary hepatocellular carcinoma. 2.? Multiple FDG avid lytic bone metastases are present as described above. 3.? Subcentimeter pulmonary nodules are present, unchanged from the 08/31/2022 CT scan and too small to be characterized on the FDG PET images. Continued monitoring with diagnostic CT imaging is recommended. 4.? No additional abnormalities suspicious for other metastatic or malignant lesions are noted. 5.? Cholelithiasis. 6.? Vascular calcifications including coronary. Assessment and Plan Assessment Anesthesia Assessment: Chart Reviewed Documented by User: Simón Baenrjee MD 10/29/22 07:30 [facility] Past Medical History Medical History (Updated 10/23/22 @ 15:00 by Richa Monae, ZA) Cataract Cirrhosis of liver Diabetes HCC (hepatocellular carcinoma) Hepatitis C [place] (hard of hearing) Family History Family History Daughter Unknown family medical history Family history of problems with anesthesia: No Surgical History Surgical History (Updated 10/23/22 @ 11:07 by Verónica Kingsley MD) History of colonoscopy History of liver biopsy History of Problems with Anesthesia: No Social History Social History Household Members: None Household Members Other:: lives alone Housing: Apartment Alcohol intake: former Patient Tobacco Use Status: Former Tobacco user Use of substances other than those prescribed or required for medical reasons: No Are you DNR?: No Advance Directives: No Advance Directives Information Provided: Yes Recently lost weight without trying: Yes How much weight loss: 34pounds or more Poor oral hygiene: No Current occupational status: disabled Meds Allergies Allergy/AdvReac Type Severity Reaction Status Date / Time acetaminophen AdvReac Unknown Unknown Verified 10/23/22 12:41 Home Medications Medication Instructions Recorded Confirmed Last Taken Type glipizide 10 mg tablet 10 mg PO BID 11/10/21 09/15/22 Unknown History lisinopril 20 2 tab PO DAILY 11/10/21 09/15/22 Unknown History mg-hydrochlorothiazide 25 mg tablet Exam Airway Mallampati Class: I TM Dist: >3cm Neck ROM: Full Denture: Lower Loose/Missing/Broken Teeth: Yes and Upper Heart: ok Lungs: ok Assessment and Plan Assessment Anesthesia Assessment: Anesthesia Plan Discussed Final Anesthetic Review Family History of Problems with Anesthesia: No History of Problems with Anesthesia: No NPO: Yes ASA Class: IV Final Preanesthetic Review: No Changes in Pt Med Stat, Meds/Allgs Chart Reviewed, Consent Obtained/Reviewed and Anes Risks/Benef Reviewed Patient Risk: High Procedure Risk: Intermediate Anesthetic Plan Anesthetic Plan: MAC: and Agree w/ Assess. and Plan Disposition: Standard PACU
[2022-10-29 06:53] VITALS: BP 142/69; PULSE 67; RESP 16; TEMP 35.8; O2SAT 100; BMI 19.7
[2022-10-29] MEDS: Lactated Ringers 1,000 ML 100 ML IVCONT (07:09)
[2022-10-29 07:38] LABS: Glucose, Whole Blood 63 mg/dL (60-115)
--- NOTE | 2022-10-29 07:44 | MHC.SHP ---
Pre-Procedural Eval Section A Date of Service: 10/29/22 Section B Chief Complaint: Liver cell carcinoma,Esophageal varices without bl Relevant Family History (Specify if Yes): No Relevant Social History: None Present Medications: see Short Stay Collaborative assessment Medical History: Significant History (Cataract Cirrhosis of liver Diabetes HCC (hepatocellular carcinoma) Hepatitis C [place] (hard of hearing)) History of Previous Operations: Relevant previous surgery/procedure and date(s) (liver biopsy) Allergies: Allergies Allergy/AdvReac Type Severity Reaction Status Date / Time acetaminophen AdvReac Unknown Unknown Verified 10/23/22 12:41 Review of Systems Sugical H&P ROS: Negative: Constitution, Cardiovascular, Respiratory, Neurological, Psychiatric, Hem-Onc, Allergic/Immunologic, Gastrointestinal, Genitourinary, Musculoskeletal, Integumentary, Endocrine and Eyes/Ears/Nose/Throat Exam Surgical H&P Exam: Normal: HEENT, Normal: Heart, Normal: Lungs, Normal: Extremities, Normal: Abdomen, Normal: Skin and Normal: Neurological Plan Diagnosis/Plan: Unchanged I have reviewed the history and physical and performed a pertinent physical examination on my patient. No changes have occurred unless specified. EGD for assessment of varices and bleeding risk prior to avastin Time Spent With Patient Time: Total time managing care of this patient today ____ minutes.
--- NOTE | 2022-10-29 07:45 | W.PM.OPN ---
Operative Note Operative Note Date of Service: 10/29/22 Narrative: Procedure Description: EGD Indication: Hx of cirrhosis and HCC with plan for avastin Anesthesia: MAC FLEXIBLE TRANSORAL UPPER GASTROINTESTINAL ENDOSCOPY UPPER ENDOSCOPY Consent: Indications for the procedure and potential complications of bleeding, perforation, reaction to medications and missed diagnosis were discussed with the patient and informed consent was obtained. Instrument: Olympus GIF H 190 J mid size upper endoscope Monitoring: Vital signs and clinical assessment, continuous EKG monitoring, Pulse oximetry, Carbon Dioxide monitoring and blood pressure monitoring were done throughout the procedure. Procedure: The patient was placed in the left lateral decubitis position and pre-procedure medications were administered and a bite block was placed. The endoscope was inserted into the mouth and advanced under direct vision to the third part of duodenum. A careful inspection was made as the upper endoscope was withdrawn including a retroflexed examination of the proximal stomach; Findings and interventions are described below. Findings: Larynx:normal Esophagus: GE junction at 40 cm, diaphragm hiatus at 40 cm, x3 cords of grade I esophageal varices which collapsed with air insufflation. No high features noted Stomach: Patchy gastric erythema with shallow ulcerations (Kevin grade III) at the antrum. Biopsies were obtained. Grade 3 flap valve on retroflexed examination of the cardia. Duodenum: Erosive bulbar duodenitis Intervention: Biopsies as noted above Impression/Findings: erosive duodenitis ulcerative gastritis small esophageal varices PLAN: commence PPI and carafate with low dose beta lakisha He is at low risk of bleeding from avastin if he is on above therapies repeat EGD as needed
[2022-10-29 08:05] VITALS: BP 115/60; PULSE 69; RESP 14; TEMP 36.3; O2SAT 96
[2022-10-29 08:20] VITALS: BP 119/71; PULSE 76; RESP 16; O2SAT 99
[2022-10-29 08:30] VITALS: BP 116/74; PULSE 76; RESP 18; TEMP 36.4; O2SAT 100
== END 2022-10-29 09:03 | disposition home or self-care (01) ==
PROVIDERS: PCP Internal Medicine; Visit Provider Internal Medicine Gastroenterology
PROC: 0DJ08ZZ Inspection of Upper Intestinal Tract, Via Natural or Artificial Opening Endoscopic (ICD-10-PCS; CPT 43235; principal; 2022-10-29 07:30)
DX: C22.0 Liver cell carcinoma (principal); C79.51 Secondary malignant neoplasm of bone; I85.00 Esophageal varices without bleeding; B19.20 Unspecified viral hepatitis C without hepatic coma; K74.60 Unspecified cirrhosis of liver; K25.4 Chronic or unspecified gastric ulcer with hemorrhage; K29.80 Duodenitis without bleeding; K44.9 Diaphragmatic hernia without obstruction or gangrene; E11.9 Type 2 diabetes mellitus without complications; H91.90 Unspecified hearing loss, unspecified ear; Z79.84 Long term (current) use of oral hypoglycemic drugs; Z79.899 Other long term (current) drug therapy; Z88.8 Allergy status to other drugs, medicaments and biological substances; Z87.891 Personal history of nicotine dependence
CPT/HCPCS: 43239; 82947; 88305; 88342; J3010

== ENCOUNTER 2022-10-30 15:52 | Outpatient (REF) | payer MEDICAID, SELFPAY ==
--- NOTE | ~2022-10-30 | XR_ITS ---
EXAMINATION: XR LUMBAR SPINE XR SACROILIAC JOINTS CLINICAL INFORMATION: Hepatocellular carcinoma. Osseous metastases. Pain. COMPARISON: PET/CT 09/08/2022, CT abdomen and pelvis 08/31/2022. TECHNIQUE: Lumbar spine is imaged in 3 views. The sacroiliac joints are imaged in 3 views. There are a total of 6 views. FINDINGS: Lumbar spine: There are 5 nonrib-bearing lumbar vertebrae with gentle dextrocurvature and normal lumbar lordosis. There is no interval lumbar vertebral compression or interval destructive process. Subtle lytic lesions are better seen on prior imaging. No spondylolisthesis. There are again degenerative disc changes lumbosacral junction with disc narrowing and endplate sclerosis and vertebral spurring. Bowel gas unremarkable. Moderate stool right colon. There are some calcifications overlying the liver similar to prior imaging. Sacroiliac joints: No fracture or interval destructive process. No subchondral sclerosis SI joints or erosive change. Subtle osseous lytic lesion is better appreciated on prior imaging. XR/XR sacroiliac joint 1-2V IMPRESSION: -Known osseous lesions better appreciated on prior cross-sectional imaging. -No interval destructive process or fracture. -Degenerative disc changes lumbosacral junction. -SI joints unremarkable.
--- NOTE | ~2022-10-30 | XR_ITS ---
EXAMINATION: XR LUMBAR SPINE XR SACROILIAC JOINTS CLINICAL INFORMATION: Hepatocellular carcinoma. Osseous metastases. Pain. COMPARISON: PET/CT 09/08/2022, CT abdomen and pelvis 08/31/2022. TECHNIQUE: Lumbar spine is imaged in 3 views. The sacroiliac joints are imaged in 3 views. There are a total of 6 views. FINDINGS: Lumbar spine: There are 5 nonrib-bearing lumbar vertebrae with gentle dextrocurvature and normal lumbar lordosis. There is no interval lumbar vertebral compression or interval destructive process. Subtle lytic lesions are better seen on prior imaging. No spondylolisthesis. There are again degenerative disc changes lumbosacral junction with disc narrowing and endplate sclerosis and vertebral spurring. Bowel gas unremarkable. Moderate stool right colon. There are some calcifications overlying the liver similar to prior imaging. Sacroiliac joints: No fracture or interval destructive process. No subchondral sclerosis SI joints or erosive change. Subtle osseous lytic lesion is better appreciated on prior imaging. XR/XR lumbar spine 2-3V IMPRESSION: -Known osseous lesions better appreciated on prior cross-sectional imaging. -No interval destructive process or fracture. -Degenerative disc changes lumbosacral junction. -SI joints unremarkable.
== END 2022-10-30 15:53 | disposition home or self-care (01) ==
LOC: HO.XRAY 15:52
PROVIDERS: PCP Internal Medicine; Visit Provider Internal Medicine
DX: C79.51 Secondary malignant neoplasm of bone (principal)
CPT/HCPCS: 72100; 72200

== ENCOUNTER 2022-11-12 06:37 | Outpatient (REF) | payer MEDICAID, SELFPAY ==
[2022-11-12 06:47] LABS: MANUAL DIFF FLAG NO
[2022-11-12 07:55] LABS: Basophils Percent Auto 0.5 % (0-2); Eosinophils Percent Auto 0.6 % (0-4); Hematocrit 38.5 % (42.0-52.0); Hemoglobin 12.4 g/dl (14.0-18.0); Imm Gran Abs Auto 0.02 X10*3/uL (0.00-0.03); Imm Gran Pct Auto 0.3 % (0.0-0.4); Lymphocytes Absolute Auto 1.5 X10*3/uL (1.2-4.9); Lymphocytes Percent Auto 23.4 % (20-40); Mean Corpuscular HGB Conc 32.2 g/dl (31.0-36.0); Mean Corpuscular Hemoglobin 25.9 pg (27.0-33.0); Mean Corpuscular Volume 80.5 fL (80.0-98.0); Mean Platelet Volume 11.2 fL (9.4-12.4); Monocytes Absolute Auto 0.7 X10*3/uL (0.1-1.2); Monocytes Percent Auto 11.6 % (2-11); Neutrophils Percent Auto 63.6 % (45-73); Platelet Count 161 X10*3/uL (160-400); Red Blood Count 4.78 X10*6/uL (4.60-5.80); Red Cell Distribution Width 17.4 % (11.0-16.0); White Blood Count 6.2 X10*3/uL (4.8-10.8)
[2022-11-12 08:09] LABS: Alanine Aminotransferase 306 U/L (0-40); Albumin Level 3.2 g/dL (3.5-5.0); Alkaline Phosphatase 457 U/L (39-117); Anion Gap 14 (12-20); Aspartate Amino Transferase 430 U/L (5-37); Bilirubin Total 1.3 mg/dL (0.0-1.0); Blood Urea Nitrogen 12 mg/dL (9-16); Calcium 8.8 mg/dL (8.4-10.2); Carbon Dioxide 26 mmol/L (22-29); Chloride 103 mmol/L (96-108); Estimated Glomerular Filt Rate > 60; Glucose Random 121 mg/dL (60-115); Potassium 3.9 mmol/L (3.3-5.1); Sodium 139 mmol/L (135-145); Total Protein 6.3 g/dL (6.5-8.0)
[2022-11-12 08:32] LABS: Appearance Urine Clear; Color Urine Dark Yellow; Glucose Urine UA Negative (Negative); Leukocyte Esterase Urine Negative (Negative); Nitrite Urine Negative (Negative); Urine Blood Negative (Negative); Urine Ketones Negative (Negative); Urine Protein Negative (Neg-Trace)
[2022-11-16 13:48] LABS: Alpha Fetoprotein 865.8 ng/mL (<6.1)
== END 2022-11-12 06:38 | disposition home or self-care (01) ==
LOC: HO.LAB 06:37
PROVIDERS: PCP Internal Medicine; Visit Provider Internal Medicine
DX: C22.0 Liver cell carcinoma (principal); C79.51 Secondary malignant neoplasm of bone
CPT/HCPCS: 36415; 80053; 81003; 82105; 85025

== ENCOUNTER 2022-11-19 10:59 | Outpatient (REF) | payer MEDICAID, SELFPAY ==
[2022-11-19 12:07] LABS: Basophils Percent Auto 0.2 % (0-2); Eosinophils Percent Auto 0.2 % (0-4); Hematocrit 38.1 % (42.0-52.0); Hemoglobin 12.4 g/dl (14.0-18.0); Imm Gran Abs Auto 0.05 X10*3/uL (0.00-0.03); Imm Gran Pct Auto 0.4 % (0.0-0.4); Lymphocytes Absolute Auto 0.6 X10*3/uL (1.2-4.9); Lymphocytes Percent Auto 4.9 % (20-40); MANUAL DIFF FLAG SCAN; Mean Corpuscular HGB Conc 32.5 g/dl (31.0-36.0); Mean Corpuscular Hemoglobin 26.3 pg (27.0-33.0); Mean Corpuscular Volume 80.9 fL (80.0-98.0); Mean Platelet Volume 10.6 fL (9.4-12.4); Monocytes Absolute Auto 1.8 X10*3/uL (0.1-1.2); Monocytes Percent Auto 15.1 % (2-11); Neutrophils Absolute Auto 9.5 x10*3/uL (2.0-8.3); Neutrophils Percent Auto 79.2 % (45-73); Platelet Count 212 X10*3/uL (160-400); Red Blood Count 4.71 X10*6/uL (4.60-5.80); Red Cell Distribution Width 18.6 % (11.0-16.0); SCAN SMEAR FLAG 1
[2022-11-19 12:28] LABS: Alanine Aminotransferase 1732 U/L (0-40); Albumin Level 3.1 g/dL (3.5-5.0); Alkaline Phosphatase 620 U/L (39-117); Anion Gap 12 (12-20); Aspartate Amino Transferase 2336 U/L (5-37); Bilirubin Total 2.7 mg/dL (0.0-1.0); Blood Urea Nitrogen 15 mg/dL (9-16); Calcium 8.3 mg/dL (8.4-10.2); Carbon Dioxide 27 mmol/L (22-29); Chloride 98 mmol/L (96-108); Estimated Glomerular Filt Rate > 60; Glucose Random 98 mg/dL (60-115); Potassium 4.6 mmol/L (3.3-5.1); Sodium 132 mmol/L (135-145); Total Protein 6.2 g/dL (6.5-8.0)
[2022-11-19 12:30] LABS: SLIDE REVIEW VERIFIED
== END 2022-11-19 11:00 | disposition home or self-care (01) ==
LOC: HO.LAB 10:59
PROVIDERS: Visit Provider Internal Medicine
DX: C22.0 Liver cell carcinoma (principal)
CPT/HCPCS: 36415; 80053; 85025

== ENCOUNTER 2022-11-19 21:21 | Emergency (ER) | payer MEDICAID, SELFPAY ==
--- NOTE | ~2022-11-19 | CT_ITS ---
EXAMINATION: CT ABDOMEN AND PELVIS WITH CONTRAST CLINICAL INFORMATION: Abdominal pain. History of metastatic HCC COMPARISON: 08/31/2022 TECHNIQUE: Multidetector volumetric images were obtained from the superior aspect of the liver through the pubic symphysis following administration 85 mL of Omnipaque 350 intravenous contrast. Sagittal and coronal reformatted images were obtained on the technologist's workstation. Oral contrast: No This CT examination was performed using dose optimization techniques as appropriate, variously including the following: *Automated exposure control *Adjustment of mA and/or kV according to patient size (this includes techniques or standardized protocols for targeted exams where dose is matched to indication/reason for exam; i.e. extremities or head) *Use of iterative reconstruction technique DLP: 380 mGy-cm FINDINGS: LUNG BASES: The visualized lung bases are unremarkable. LIVER, GALLBLADDER, AND BILIARY TREE: In addition to the previously seen masses in the medial and lateral segments of the liver, there are innumerable new tiny masses scattered throughout the liver compatible with worsening metastatic disease. Cholelithiasis. Localized dilatation of the biliary tree within hepatic segment 4A likely due to central obstruction. Remainder of the biliary tree is not dilated. PANCREAS: No definite pancreatic mass or inflammation. There is mild peripancreatic edema which appears generalized throughout the retroperitoneum. SPLEEN: Multiple new subcentimeter splenic hypodensities concerning for metastases. ADRENAL GLANDS: Unremarkable. KIDNEYS AND URETERS: The kidneys are normal in size, shape, and attenuation. No hydronephrosis, hydroureter, or calculi seen. No perinephric stranding. BLADDER: Unremarkable. GASTROINTESTINAL TRACT: No intestinal obstruction or inflammation. PERITONEUM: Trace ascites and pelvic free fluid. ABDOMINAL WALL: No significant hernia is appreciated. LYMPH NODES: New 1.0 cm lymph node along the left lateral aspect of the celiac axis. An additional lymph node versus peritoneal implant inferior to the left renal vein measures 1.4 cm. VASCULAR: Aorta is atherosclerotic but normal caliber. Patent vascular structures. PELVIC VISCERA: Prostate and seminal vesicles unremarkable. Small pelvic free fluid. OSSEOUS STRUCTURES: No fractures. Lytic lesions redemonstrated throughout the spine and pelvis. CT/CT abdomen pelvis w IV con IMPRESSION: * Interval progression of hepatic metastatic disease, with innumerable new tiny masses scattered throughout the liver. * Localized dilatation of the biliary tree within hepatic segment 4A likely due to central obstruction, unchanged. * Multiple new subcentimeter splenic hypodensities concerning for metastases. * New lymph nodes along the celiac axis and inferior to the left renal vein concerning for metastatic disease. * Mild peripancreatic edema which appears generalized throughout the retroperitoneum. This could be related to generalized volume overload, however pancreatitis is not excluded. Please correlate with lipase. * Trace ascites. * Cholelithiasis. * Stable osseous metastatic disease. No pathologic fractures.
[2022-11-19 21:33] VITALS: BP 158/77; PULSE 92; RESP 18; TEMP 36.6; O2SAT 100; BMI 18.7
[2022-11-19 22:01] LABS: Basophils Percent Auto 0.2 % (0-2); Hematocrit 39.1 % (42.0-52.0); Hemoglobin 12.7 g/dl (14.0-18.0); Imm Gran Abs Auto 0.07 X10*3/uL (0.00-0.03); Imm Gran Pct Auto 0.6 % (0.0-0.4); Lymphocytes Absolute Auto 0.7 X10*3/uL (1.2-4.9); Lymphocytes Percent Auto 5.3 % (20-40); MANUAL DIFF FLAG SCAN; Mean Corpuscular HGB Conc 32.5 g/dl (31.0-36.0); Mean Corpuscular Hemoglobin 25.9 pg (27.0-33.0); Mean Corpuscular Volume 79.6 fL (80.0-98.0); Mean Platelet Volume 10.1 fL (9.4-12.4); Monocytes Absolute Auto 2.1 X10*3/uL (0.1-1.2); Monocytes Percent Auto 17.6 % (2-11); Neutrophils Absolute Auto 9.3 x10*3/uL (2.0-8.3); Neutrophils Percent Auto 76.3 % (45-73); Platelet Count 227 X10*3/uL (160-400); Red Blood Count 4.91 X10*6/uL (4.60-5.80); Red Cell Distribution Width 18.7 % (11.0-16.0); SCAN SMEAR FLAG 1; White Blood Count 12.2 X10*3/uL (4.8-10.8)
[2022-11-19 22:19] LABS: SLIDE REVIEW VERIFIED
[2022-11-19 22:28] LABS: Alanine Aminotransferase 2031 U/L (0-40); Albumin Level 3.3 g/dL (3.5-5.0); Alkaline Phosphatase 669 U/L (39-117); Anion Gap 14 (12-20); Bilirubin Total 3.1 mg/dL (0.0-1.0); Blood Urea Nitrogen 19 mg/dL (9-16); Calcium 8.5 mg/dL (8.4-10.2); Carbon Dioxide 23 mmol/L (22-29); Chloride 99 mmol/L (96-108); Creatinine Clr Calc Pharmacy 64.1; Estimated Glomerular Filt Rate > 60; Glucose Random 110 mg/dL (60-115); Potassium 4.4 mmol/L (3.3-5.1); Sodium 132 mmol/L (135-145); Total Protein 6.5 g/dL (6.5-8.0)
[2022-11-19 22:50] LABS: Aspartate Amino Transferase 2612 U/L (5-37)
[2022-11-19 23:33] VITALS: BP 179/88; PULSE 93; RESP 17; TEMP 36.4; O2SAT 99
--- NOTE | 2022-11-19 23:59 | ED.GENADULT ---
HPI - General Adult General Chief complaint: Recheck/Abnormal Lab/Rx Stated complaint: Lever levels high sent by primary Time Seen by Provider: 11/19/22 23:48 Source: patient Mode of arrival: ambulatory Limitations: no limitations History of Present Illness HPI narrative: Patient is 62 years old with history of alcoholics liver cirrhosis, treated hepatitis-C, but the carcinoma with multiple bone Mets had labs done as outpatient from [facility] which showed elevated liver function test significantly as compared to labs done 1 week ago oncologist are the patient to go to the hospital. Patient complaining of diffuse abdominal pain slight nausea no vomiting no confusion Related Data Home Medications Medication Instructions Recorded Confirmed glipizide 10 mg tablet 10 mg PO BID 11/10/21 10/30/22 lisinopril 20 2 tab PO DAILY 11/10/21 10/30/22 mg-hydrochlorothiazide 25 mg tablet Previous Rx's Medication Instructions Recorded entecavir 1 mg tablet 1 mg PO DAILY 30 days #30 tabs 01/23/22 ondansetron 8 mg disintegrating 8 mg PO Q8H PRN Nausea #30 tabs 08/25/22 tablet polyethylene glycol 3350 8.5 gram 8.5 g PO BID PRN Constipation #60 09/08/22 oral powder packet ea oxycodone 5 mg capsule 5 mg PO Q4H PRN Pain #60 caps 10/23/22 carvedilol 3.125 mg tablet 3.125 mg PO .daily #30 tabs 10/29/22 pantoprazole 40 mg tablet,delayed 40 mg PO .daily #90 tabs 10/29/22 release sucralfate 100 mg/mL oral 1 g (10 mL) PO .BID 4 weeks #1,000 10/29/22 suspension (Carafate) mL bismuth subsalicylate 262 mg 2 tab PO QID 14 days #112 tabs 11/03/22 chewable tablet metronidazole 500 mg tablet 500 mg PO TID 14 days #42 tabs 11/03/22 pantoprazole 20 mg tablet,delayed 20 mg PO BID 2 weeks #28 tabs 11/03/22 release tetracycline 500 mg capsule 500 mg PO Q6H 14 days #56 caps 11/03/22 prednisone 50 mg tablet 50 mg PO DAILY #30 tabs 11/13/22 Allergies Allergy/AdvReac Type Severity Reaction Status Date / Time acetaminophen AdvReac Unknown Unknown Verified 11/19/22 21:32 Review of Systems Review of Systems: Yes all other systems are reviewed and are negative [facility] Past Medical History Medical History Bleeding gastric ulcer Cataract Cirrhosis of liver Diabetes HCC (hepatocellular carcinoma) Hepatitis C [place] (hard of hearing) Surgical History History of colonoscopy History of liver biopsy Family History Family History Daughter Unknown family medical history Social History Social History Household Members: None Household Members Other:: lives alone Housing: Apartment Alcohol intake: former Patient Tobacco Use Status: Former Tobacco user Smoked in Last 30 Days: No Use of substances other than those prescribed or required for medical reasons: No Advance Directives: No Advance Directives Information Provided: Yes Current occupational status: disabled Physical Exam ED Vital Signs: Vital Signs - 24 hr 11/19/22 21:33 11/19/22 23:33 11/20/22 03:03 Temperature 97.9 F 97.5 F 98.6 F Pulse Rate 92 93 98 Respiratory Rate 18 17 16 Blood Pressure 158/77 H 179/88 H 178/98 H Pulse Oximetry 100 99 99 Oxygen Delivery Method Room Air Room Air Room Air BMI result Body Mass Index 18.7 Appearance: Alert. Oriented X3. No acute distress. Eyes: Icterus+ ENT: Pharynx normal. Oral Mucosa moist Neck: Normal inspection. Neck supple. CVS: Normal heart rate and rhythm. Pulses normal. Respiratory: No respiratory distress. Equal air entry bilateral, no wheezing/rales/rhonchi Abdomen: Soft diffuse left upper abdominal tenderness lower rate no focal tenderness or guarding. Bowel sounds are present, no mass palpable, no CVA tenderness Skin: Skin warm and dry. Normal skin color. Normal skin turgor. Extremities: No lower extremity edema. No calf tenderness Neuro: Oriented X 3. No motor deficit. No sensory deficit.No cerebellar signs , cranial nerves II-XII intact Medications Administered Discontinued Medications Generic Name Dose Route Start Last Admin Trade Name Freq PRN Reason Stop Dose Admin Hydromorphone HCl 1 mg 11/20/22 00:06 11/20/22 00:36 Hydromorphone Hcl 1 Mg/Ml Syringe IVPUSH 11/20/22 00:07 1 mg ONCE ONE Administration Protocol Sodium Chloride 1,000 mls @ 999 mls/hr 11/20/22 00:06 11/20/22 01:48 Ns IV 11/20/22 01:06 Infused .Q1H1M ONE Infusion Iohexol 85 ml 11/20/22 00:57 11/20/22 00:59 Iohexol 350 Mg/Ml 100 Ml Infus..Btl IV 11/20/22 00:58 85 ml ONCE ONE Administration Ondansetron HCl 4 mg 11/20/22 00:06 11/20/22 00:37 Ondansetron Hcl 4 Mg/2 Ml Vial IVPUSH 11/20/22 00:07 4 mg ONCE ONE Administration Medical Decision Making Medical Decision Making MDM Narrative: Patient metastatic hepatocellular carcinoma with history of alcoholic cirrhosis CT scan showed worsening of cancer with Mets no signs of encephalopathy patient has an appointment with oncologist today does want to stay in the hospital feeling much better after pain medication will discharge patient home to see oncologist at 08:00 today Lab Data MDM Lab Attestation statement: I reviewed the patient's lab results. 11/19/22 21:56 11/19/22 21:56 Labs: Lab Results 11/19/22 11/19/22 11/20/22 Range/Units 21:56 21:56 02:54 WBC 12.2 H (4.8-10.8) X10*3/uL RBC 4.91 (4.60-5.80) X10*6/uL Hgb 12.7 L (14.0-18.0) g/dl Hct 39.1 L (42.0-52.0) % MCV 79.6 L (80.0-98.0) fL MCH 25.9 L (27.0-33.0) pg MCHC 32.5 (31.0-36.0) g/dl RDW 18.7 H (11.0-16.0) % Plt Count 227 (160-400) X10*3/uL MPV 10.1 (9.4-12.4) fL Immature Gran % (Auto) 0.6 H (0.0-0.4) % Neut % (Auto) 76.3 H (45-73) % Lymph % (Auto) 5.3 L (20-40) % [place] % (Auto) 17.6 H (2-11) % Eos % (Auto) 0.0 (0-4) % Baso % (Auto) 0.2 (0-2) % Lymph # (Auto) 0.7 L (1.2-4.9) X10*3/uL [place] # (Auto) 2.1 H (0.1-1.2) X10*3/uL Eos # (Auto) 0.0 (0.0-0.4) X10*3/uL Baso # (Auto) 0.0 (0.0-0.2) X10*3/uL Abs Immat Gran (auto) 0.07 H (0.00-0.03) X10*3/uL Absolute Neuts (auto) 9.3 H (2.0-8.3) x10*3/uL Absolute Nucleated RBC 0.000 (0.0-0.012) X10*3/uL Nucleated RBC % (auto) 0.0 (0.0-0.2) /100WBC Smear Tech's Comments VERIFIED Sodium 132 L (135-145) mmol/L Potassium 4.4 (3.3-5.1) mmol/L Chloride 99 (96-108) mmol/L Carbon Dioxide 23 (22-29) mmol/L Anion Gap 14 (12-20) BUN 19 H (9-16) mg/dL Creatinine 0.92 (0.5-1.4) mg/dL Estim Creat Clear Calc 64.1 Estimated GFR > 60 Random Glucose 110 (60-115) mg/dL Calcium 8.5 (8.4-10.2) mg/dL Total Bilirubin 3.1 H (0.0-1.0) mg/dL AST 2612 H (5-37) U/L ALT 2031 H (0-40) U/L Alkaline Phosphatase 669 H (39-117) U/L Total Protein 6.5 (6.5-8.0) g/dL Albumin 3.3 L (3.5-5.0) g/dL Lipase 21 (8-78) U/L Ethyl Alcohol < 10 mg/dL Discharge Plan Discharge Clinical Impression: Bone metastases, HCC (hepatocellular carcinoma) Patient Disposition: Home, Self-Care Instructions: Liver Cancer (DC) Additional Instructions: See your oncologist today in a.m. as scheduled Prescriptions: No Action entecavir 1 mg tablet 1 mg PO DAILY 30 Days Qty: 30 6RF metronidazole 500 mg tablet 500 mg PO TID 14 Days Qty: 42 0RF tetracycline 500 mg capsule 500 mg PO Q6H 14 Days Qty: 56 0RF bismuth subsalicylate 262 mg tablet,chewable 2 tab PO QID 14 Days Qty: 112 0RF pantoprazole 20 mg tablet,delayed release (DR/EC) 20 mg PO BID 14 Days Qty: 28 0RF ondansetron 8 mg Tablet,Disintegrating 8 mg PO Q8H PRN (Reason: Nausea) Qty: 30 3RF polyethylene glycol 3350 8.5 gram Powder In Packet 8.5 g PO BID PRN (Reason: Constipation) Qty: 60 2RF oxycodone 5 mg Capsule 5 mg PO Q4H PRN (Reason: Pain) Qty: 60 0RF Rx Instructions: Partial Fill upon patient request. prednisone 50 mg Tablet 50 mg PO DAILY Qty: 30 0RF pantoprazole 40 mg tablet,delayed release (DR/EC) 40 mg PO .daily Qty: 90 1RF sucralfate [Carafate] 100 mg/mL suspension 1 g PO .BID 28 Days Qty: 1000 0RF carvedilol 3.125 mg tablet 3.125 mg PO .daily Qty: 30 2RF Rx Instructions: must administer with a meal/food lisinopril-hydrochlorothiazide 20-25 mg tablet 2 tab PO DAILY glipizide 10 mg tablet 10 mg PO BID Interventions: ED Discharge Assessment Last Done: 11/20/22 03:04 Discharge Date/Time: 11/20/22 03:05
[2022-11-20] MEDS: 0.9 % Sodium Chloride 1,000 ML 999 ML IV (00:36)
[2022-11-20] MEDS: HYDROmorphone HCl 1 MG/ML SYRINGE IVPUSH (00:36)
[2022-11-20] MEDS: ondansetron HCL 4 MG/2 ML VIAL IVPUSH (00:37)
--- NOTE | 2022-11-20 00:41 | PC.NURSE ---
iv placed in L FA. pt tolerated well. pt at bedside at bedside. pt medicated according to oct. pt awaiting to be taken to CT
[2022-11-20] MEDS: iohexoL 350 MG/ML 100 ML INFUS..BTL 85 ML IV (00:59)
--- NOTE | 2022-11-20 02:38 | PC.NURSE ---
pt able to ambulate to bathroom independently. urine sample obtained and sent down to lab
[2022-11-20 02:47] LABS: Ethanol < 10 mg/dL
[2022-11-20 03:03] VITALS: BP 178/98; PULSE 98; RESP 16; TEMP 37; O2SAT 99
--- NOTE | 2022-11-20 03:04 | PC.NURSE ---
iv removed at time of discharge pt reports 8/10 pain at this time. pt ambulatory. dr daugherty aware of BP. pt's at bedside. pt provided with discharge packet. pt verbalized understanding of discharge plan
[2022-11-20 03:12] LABS: Lipase 21 U/L (8-78)
== END 2022-11-20 03:05 | disposition home or self-care (01) ==
PROVIDERS: Student in an Organized Health Care Education/Training Program; Emergency Provider Internal Medicine
DX: R10.2 Pelvic and perineal pain (principal); R79.89 Other specified abnormal findings of blood chemistry; R11.2 Nausea with vomiting, unspecified; Z79.899 Other long term (current) drug therapy
CPT/HCPCS: 36415; 74177; 80053; 82077; 83690; 85025; 96361; 96374; 96375; 99284; J1170; J2405; Q9967